=== PATIENT | female | born 1995 | race Caucasian/White ===

== ENCOUNTER → 2016-09-09 | Outpatient (REF) | payer OTHER | LOC: M SFHCLERA 09:34 | PROVIDERS: ATTEND Physician Assistant | DX: J02.9 Acute pharyngitis, unspecified (principal) ==

== ENCOUNTER → 2016-09-12 | Outpatient (REF) | payer OTHER | LOC: M SFHCLERA 10:21 | PROVIDERS: ATTEND Physician Assistant | DX: E03.9 Hypothyroidism, unspecified (principal) ==

== ENCOUNTER → 2017-02-11 | Outpatient (REF) | payer OTHER | LOC: M SFHCLERA 16:31 | PROVIDERS: ATTEND Nurse Practitioner Family | DX: J06.9 Acute upper respiratory infection, unspecified (principal) ==

== ENCOUNTER → 2017-11-11 | Outpatient (REF) | payer OTHER | LOC: M SFHCLERA 16:53 | DX: E03.8 Other specified hypothyroidism (principal) ==

== ENCOUNTER → 2017-12-18 | Outpatient (REF) | payer OTHER ==
[2017-12-18 12:33] LABS: FREE T4 0.99 NG/DL (0.76-1.46)
== END ==
LOC: M SFHCLERA 09:15
DX: E03.9 Hypothyroidism, unspecified (principal)

== ENCOUNTER → 2018-01-29 | Outpatient (REF) | payer OTHER ==
[2018-01-29 12:36] LABS: FREE T4 1.09 NG/DL (0.76-1.46)
== END ==
LOC: M SFHCLERA 10:03
DX: R94.6 Abnormal results of thyroid function studies (principal)
CPT/HCPCS: 84443

== ENCOUNTER 2018-10-29 07:40 | Day surgery (SDC) | payer BC ==
[~2018-10-29] VITALS: Ht 149.9 cm; Wt 78.0 kg
[~2018-10-29 07:40] MED LIST: AMIT10TA PO; AMPICILLIN SOD/SULBACTAM SOD 3 GM in D5W MINI-BAG PLUS 100 ML IV ONE; AVIATAB PO; CELE20TA PO; LIPI10TA PO; LR 1,000 ML IV SCH; RANI1TAB6 PO; SYNT50TA PO; ZYRTTAB8 PO
[2018-10-29] MEDS ORDERED: MIDAZOLAM INJ 2 MG/2 ML VIAL (J2250) As Ordered ONE (08:05)
[2018-10-29] MEDS ORDERED: ROCURONIUM BROMIDE 50 MG/5 ML VIAL As Ordered ONE (08:05)
[2018-10-29] MEDS ORDERED: fentaNYL 100 MCG/2 ML INJECTION (J3010) As Ordered ONE ×3 (08:05→11:01)
[2018-10-29] MEDS ORDERED: PROPOFOL 200 MG/20 ML VIAL As Ordered ONE (08:05)
[2018-10-29] MEDS ORDERED: LIDOCAINE 2% INJ 100 MG/5 ML SDV (FOR ANES.) As Ordered ONE (08:05)
[2018-10-29] MEDS ORDERED: ONDANSETRON 4MG/2ML VIAL (J2405) As Ordered ONE (08:09)
[2018-10-29] MEDS ORDERED: dexameTHASONE 4 MG/ML 1ML VIAL (J1100) As Ordered ONE (08:09)
[2018-10-29 08:24] LABS: URINE PREG TEST NEGATIVE (NEGATIVE)
[2018-10-29] MEDS ORDERED: LIDOCAINE 1% SDV INJ 30 ML VIAL As Ordered ONE (08:51)
[2018-10-29] MEDS ORDERED: BUPIVACAINE HCL 0.25% 30 ML VIAL As Ordered ONE (08:51)
[2018-10-29] MEDS ORDERED: GLYCOPYRROLATE INJ 0.2 MG/ML 2 ML VIAL As Ordered ONE ×2 (09:37→10:02)
[2018-10-29] MEDS ORDERED: KETOROLAC 60 MG/2 ML VIAL (J1885) As Ordered ONE (10:01)
[2018-10-29] MEDS ORDERED: NEOSTIGMINE 10 MG/10 ML VIAL (J2710) As Ordered ONE (10:02)
--- NOTE | 2018-10-29 10:18 | ROOPDOC ---
[facility] Report Of Operation Report of Operation DATE OF PROCEDURE: 10/29/18 PREPROCEDURE DIAGNOSES: Cholelithiasis, Biliary Colic. POSTPROCEDURE DIAGNOSES: same. PROCEDURE: Laparoscopic Cholecystectomy. SURGEON: Teodoro Mckenna MD TEACHER THEATER ARTS: MD Dr. Sridevi Beauchamp provided assistance with placement of ports, retraction of gallbladder to facilitate dissection ANESTHESIA: General Anesthesia. ESTIMATED BLOOD LOSS: Approximately 20 mL. COMPLICATIONS: none. REMARKS: multiple stones noted in moderately distended gallbladder, thin walled. PROCEDURE NOTE: 23 F with intermittent epigastric and right upper quadrant pain secondary to biliary colic attacks. DESCRIPTION OF PROCEDURE: Patient was given a dose Unasyn 3 g IV preoperatively for prophylaxis. She was brought to the operating room, laid supine on the table, compression boots placed for DVT prophylaxis. General endotracheal anesthesia started. Her abdomen then prepped and draped in usual sterile fashion. Surgical timeout was performed prior to starting surgery. Entry into the abdomen done through an incision above the umbilical cleft. She had a previous scar at this area.. A Veress needle was inserted with a controlled fashion. CO2 insufflation started to pressure 15 mmHg. Using the same incision a 5 mm Visiport was placed under direct vision laparoscope. The area underneath the insertion site was inspected and no injury found. She was then placed in steep reverse Trendelenburg. Her right side was tilted up to further expose the gallbladder. Under direct vision a 11 mm epigastric port and Two 5 mm working ports placed along the right subcostal line. Operative findings: Her liver is noted to be smooth in contour no nodularities or lesions found. Her gallbladder appears distended with multiple stones that are mobile in the neck and mid body of her gallbladder. The wall overall appears within. The fundus of the gallbladder was grasped and the gallbladder was elevated superiorly exposing the neck of the gallbladder. The peritoneum overlying the area was opened up and dissected free both anteriorly and posteriorly to help with retraction of the gallbladder. The hepatocystic triangle was approached and dissected using a [place] and instrument. The cystic duct was identified coming off from the next gallbladder this was circumferentially dissected. The cystic artery was identified in its usual position medially behind a small lymph node of [place]. This was similarly circumferentially dissected off surrounding adipose tissue. We continued posterior dissection proximally at the next gallbladder to dissect the posterior wall of the gallbladder off the liver plate until a critical view of safety was achieved whereby only the previously identified duct and artery coursing through the neck the gallbladder. There was some bleeding behind the gallbladder. At this point the cystic artery was clipped 4 times and divided. We were then able to expose the area of bleeding at the liver plate and this was controlled with Bovie cautery. After again checking her anatomy and verifying that the previously identified cystic duct, this was also clipped 4 times and divided. The rest of the gallbladder was then dissected free of the gallbladder bed using Bovie cautery. There was minimal bleeding at the posterior gallbladder attachments to the liver plate this was easily controlled with Bovie cautery. The gallbladder was then placed in an Endo Catch bag and retrieved outside through the epigastric port site. After re-insufflation and inspected the clips and noted this to be in place. No further bleeding noted. No bile leakage noted. The abdomen was deflated all ports were removed. The epigastric fascial defect repaired with 0 Vicryl in a mattress fashion. Rest of the skin incisions closed with 4-0 Monocryl in subcuticular fashion. Steri-Strips and gauze dressings were placed, the wound. Patient was informed they awakened, extubated and brought to recovery room stable TEODORO MCKENNA MD Oct 29, 2018 10:18
[2018-10-29] MEDS ORDERED: LR 1,000 ML IV SCH (11:00)
[2018-10-29] MEDS ORDERED: KETOROLAC 30 MG/ML VIAL (J1885) IV PRN (11:00)
[2018-10-29] MEDS ORDERED: ONDANSETRON 4MG/2ML VIAL (J2405) IV PRN ×2 (11:00)
[2018-10-29] MEDS ORDERED: HYDROMORPHONE HCL 0.5 MG/ 0.5 ML SYRINGE (J1170 PER 1) IV PRN (11:00)
[2018-10-29] MEDS ORDERED: NORCO, ANEXSIA 5/325MG TABLET (HYDROcodone/ACETAMINOPHEN) PO PRN ×2 (11:00)
[2018-10-29] MEDS: fentaNYL 100 MCG/2 ML INJECTION (J3010) IV PRN ×4 (11:04→11:19)
[2018-10-29] MEDS: PERCOCET 5MG/325MG TAB PO PRN ×2 (11:08→11:38)
[2018-10-29 13:10] VITALS: BP 113/64
== END 2018-10-29 13:18 | disposition home or self-care (01) ==
LOC: M SDC 07:40
PROVIDERS: ATTEND Surgery
DX: K80.10 Calculus of gallbladder with chronic cholecystitis without obstruction (principal); K82.4 Cholesterolosis of gallbladder; E03.9 Hypothyroidism, unspecified; K21.9 Gastro-esophageal reflux disease without esophagitis; F41.9 Anxiety disorder, unspecified; F42.9 Obsessive-compulsive disorder, unspecified; G43.909 Migraine, unspecified, not intractable, without status migrainosus; Z79.899 Other long term (current) drug therapy
CPT/HCPCS: 47562; 84703; 88304; J1100; J1885; J2250; J2405; J2710; J3010

== ENCOUNTER → 2019-11-22 | Outpatient (REF) | payer BC ==
[~2019-11-22] MED LIST changes: -AMPICILLIN SOD/SULBACTAM SOD 3 GM in D5W MINI-BAG PLUS 100 ML IV ONE; -LR 1,000 ML IV SCH; +RANI-397 PO; -RANI1TAB6 PO
== END ==
LOC: M SFHCWAGY 13:06
PROVIDERS: ATTEND Nurse Practitioner Women's Health
DX: Z12.4 Encounter for screening for malignant neoplasm of cervix (principal)

== ENCOUNTER → 2022-11-27 | Outpatient (CLI) | payer BC ==
[~2022-11-27] MED LIST changes: -AMIT10TA PO; +AMIT10TA7 PO
[2022-11-27 14:45] LABS: HEPATITIS B SURFACE ANTIGEN NEGATIVE (NEGATIVE)
[2022-11-27 14:58] LABS: HIV 1&2 SCREEN CENTAUR NEGATIVE (NEGATIVE)
[2022-11-27 15:05] LABS: HEPATITIS B CORE ANTIBODY IGM NEGATIVE (NEGATIVE)
[2022-11-27 15:19] LABS: GC DNA AMPLIFICATION NEGATIVE (NEGATIVE)
[2022-11-28 01:40] LABS: GC DNA AMPLIFICATION NEGATIVE (NEGATIVE)
== END ==
LOC: M PLALAB 09:17
PROVIDERS: ATTEND Nurse Practitioner Family
DX: Z12.4 Encounter for screening for malignant neoplasm of cervix (principal); Z11.3 Encounter for screening for infections with a predominantly sexual mode of transmission; R87.612 Low grade squamous intraepithelial lesion on cytologic smear of cervix (LGSIL)
CPT/HCPCS: 36415; 86705; 86780; 86803; 87340; 87389; 87810; 87850; G0123

== ENCOUNTER 2023-09-21 08:47 | Day surgery (SDC) | payer BC ==
[~2023-09-21] VITALS: Ht 149.9 cm; Wt 80.9 kg
[~2023-09-21 08:47] MED LIST changes: +MONT-5 PO; +NS 1,000 ML IV ONE; +SYNT88TA2 PO
[2023-09-21] MEDS ORDERED: propofoL 200 MG/20 ML VIAL As Ordered ONE (10:12)
[2023-09-21 10:23] VITALS: TEMP 97.7
[2023-09-21 10:43] VITALS: BP 103/57; O2SAT 95
== END 2023-09-21 10:44 | disposition home or self-care (01) ==
LOC: M OPP 08:47
PROVIDERS: ATTEND Internal Medicine Gastroenterology
DX: K59.1 Functional diarrhea (principal); G47.9 Sleep disorder, unspecified; Z79.02 Long term (current) use of antithrombotics/antiplatelets; Z79.51 Long term (current) use of inhaled steroids; Z79.890 Hormone replacement therapy; Z91.048 Other nonmedicinal substance allergy status

== ENCOUNTER → 2025-01-05 | Outpatient (CLI) | payer BC ==
[~2025-01-05] MED LIST changes: -NS 1,000 ML IV ONE
[2025-01-05 10:32] LABS: HEPATITIS B SURFACE ANTIGEN NEGATIVE (NEGATIVE)
[2025-01-05 10:45] LABS: HIV 1&2 SCREEN NEGATIVE (NEGATIVE)
[2025-01-05 10:53] LABS: HEPATITIS B CORE ANTIBODY IGM NEGATIVE (NEGATIVE); HEPATITIS C VIRUS ABY INDEX 0.02 INDEX (<0.8)
[2025-01-05 12:48] LABS: GC DNA AMPLIFICATION NEGATIVE (NEGATIVE)
[2025-01-05 13:14] LABS: Trichomonas vaginalis (AMP) NOT DETECTED (NEGATIVE)
== END ==
LOC: M PLALAB 07:53
PROVIDERS: ATTEND Nurse Practitioner Family
DX: Z11.3 Encounter for screening for infections with a predominantly sexual mode of transmission (principal)

== ENCOUNTER → 2025-03-15 | Outpatient (REF) | payer BC ==
[~2025-03-15] MED LIST changes: +AMIT10TA11 PO; -AMIT10TA7 PO
== END ==
LOC: M SFHCWAGY 15:15
PROVIDERS: ATTEND Advanced Practice Midwife
DX: R87.612 Low grade squamous intraepithelial lesion on cytologic smear of cervix (LGSIL) (principal); N72 Inflammatory disease of cervix uteri

== ENCOUNTER → 2025-04-27 | Outpatient (REF) | payer BC | LOC: M LAB REF 17:12 | PROVIDERS: ATTEND Physician Assistant | DX: J02.9 Acute pharyngitis, unspecified (principal) ==